=== PATIENT | male | born 1960 | race Caucasian/White ===

== ENCOUNTER 2017-11-15 12:38 | Outpatient (CLI) | payer MEDICARE ==
--- NOTE | 2017-11-15 13:38 | RAD ---
FOUR VIEWS CERVICAL SPINE INCLUDING FLEXION AND EXTENSION AND LATERAL AND SWIMMER VIEWS: HISTORY: Spondylosis, M47.12. FINDINGS: Four views cervical spine demonstrate ACDF with fusion of the C3, C4, C5, and C6 vertebrae. ACDF ant erior plate and screws are in place. No evidence of acute fracture is seen. Bridging osteophytes ar e seen at the C2-3 level. IMPRESSION: Mid and lower cervical anterior cervical diskectomy and fusion with C2-3 degenerative anterior osteop hyte. POS: [facility]
--- NOTE | 2017-11-15 14:54 | MRI ---
MRI LUMBAR SPINE WITHOUT CONTRAST: Date: 11/15/17 HISTORY: M54.5, low back pain. Bilateral lower leg weakness. COMPARISON: None. FINDINGS: Aortic contour is nonaneurysmal. Mild paraspinal muscular atrophy, symmetric. Visualized portions of kidneys are unremarkable, although limited. Conus medullaris terminates at the inferior endplate L2. There are Modic Type II changes at inferior end plate of L3 and superior end plate of L4. Same is kat e for the superior end plate of L5. Levels are as follows: T12-L1: No significant neural foraminal or spinal canal narrowing. L1-2: Mild disc desiccation. Low grade circumferential disc bulge. The spinal canal measures over 1.0 cm. M ild facet arthrosis. No significant neural foraminal or spinal canal narrowing. L2-3: Mild disc desiccation. Moderate facet arthropathy. No significant neural foraminal or spinal canal na rrowing. L3-L4: Severe degenerative disc space disease. Mild facet arthrosis. Circumferential disc bulge. The spinal canal is narrowed to approximately 8.0 mm. Moderate facet arthropathy. Moderate bilateral neural fora aimee narrowing. There is abutment of the exiting left and right L3 nerve roots. L4-5: Severe degenerative disc space height loss. Circumferential disc bulge. Moderate to severe facet arth rosis. There is moderate to severe bilateral neural foraminal narrowing with abutment of the exiting left L4 nerve root. L5-S1: Moderate facet arthropathy. Mild bilateral neural foraminal narrowing. There is a S1 hemangioma. IMPRESSION: Multifocal degenerative disease as described above, worst at L3-4. POS: [facility]
--- NOTE | 2017-11-15 15:02 | MRI ---
MRI THORACIC SPINE: HISTORY: Bilateral arm trembling for 6 months. FINDINGS: Multiplanar, multisequence noncontrast enhanced MRI images thoracic spine obtained. Images demonstrate a broad-based disk bulge at the T2-3 level. This results in minimal but not signi ficant compression of the thecal sac. No evidence of cord compression seen. The neural foramen are patent. T3-4: Unremarkable. T4-5: Disk desiccation is seen. There are some Modic-type I changes seen in the inferior anterior a spect of T4 and superior anterior aspect of T5. T5-6: There is some disk desiccation seen. The central canal and neural foramen are patent. The rest of the thoracic spine is unremarkable. No evidence of cord masses or lesions seen. IMPRESSION: No significant evidence of spinal cord masses or lesions noted. The central canal and neural foramen for the most part are patent without evidence of significant stenosis. POS: [facility]
== END 2017-11-15 12:39 | disposition home or self-care (01) ==
LOC: TBSIIMAG 12:38
PROVIDERS: ATTEND Neurological Surgery
DX: M47.12 Other spondylosis with myelopathy, cervical region (principal); M54.5 Low back pain; M54.6 Pain in thoracic spine; M47.896 Other spondylosis, lumbar region; M25.78 Osteophyte, vertebrae; Z98.1 Arthrodesis status
CPT/HCPCS: 72040; 72146; 72148